=== PATIENT | female | born 1990 | race Caucasian/White ===

== ENCOUNTER 2025-04-15 09:12 | Emergency (ER) | payer OTHER ==
[~2025-04-15] VITALS: Ht 180.3 cm; Wt 170.0 kg
[2025-04-15 09:41] VITALS: TEMP 98.2
[2025-04-15] MEDS ORDERED: HYDR25TA2 PO (10:15)
[2025-04-15] MEDS ORDERED: LOSA-382 PO (10:15)
[2025-04-15] MEDS ORDERED: ESCI20TA87 PO (10:15)
[2025-04-15] MEDS ORDERED: AMLO-258 PO (10:15)
[2025-04-15] MEDS ORDERED: BUPR-345 PO (10:15)
[2025-04-15] MEDS ORDERED: METF-1211 PO (10:15)
[2025-04-15] MEDS ORDERED: IBUP-1492 PO (10:29)
[2025-04-15] MEDS ORDERED: PERCT PO (10:29)
[2025-04-15] MEDS: KETOROLAC TROMETHAMINE 60 MG/2 ML VIAL IM ONE (10:30)
[2025-04-15 10:46] VITALS: BP 142/84; PULSE 84; RESP 16; O2SAT 99
== END 2025-04-15 10:55 | disposition home or self-care (01) ==
LOC: EMS 09:12
DX: S96.812A Strain of other specified muscles and tendons at ankle and foot level, left foot, initial encounter (principal); F41.9 Anxiety disorder, unspecified; I10 Essential (primary) hypertension; F32.A Depression, unspecified; Z88.8 Allergy status to other drugs, medicaments and biological substances; Z90.89 Acquired absence of other organs; Z98.890 Other specified postprocedural states; X58.XXXA Exposure to other specified factors, initial encounter; Y93.89 Activity, other specified; Y92.89 Other specified places as the place of occurrence of the external cause; Y99.0 Civilian activity done for income or pay
CPT/HCPCS: 99283; 96372; J1885